=== PATIENT | male | born 1950 | race Caucasian/White ===

== ENCOUNTER → 2017-04-12 09:57 | Outpatient (CLI) | payer MEDICARE ==
[~2017-04-12 09:57] MED LIST: ASPIRIN 81 MG E81 MG PO; ASPIRIN325 MG PO; ESTER-C 500 MG1 TAB; IMDUR30 MG PO; KEPPRA250 MG PO; LIPITOR20 MG PO; MELATONIN 3 MG1 TAB PO; MULTI-DAY VITAM1 TAB PO; NORVASC10 MG PO; PLAVIX75 MG PO; POTASSIUM99 M1 PO
== END | disposition home or self-care (01) ==
LOC: D.MRI 09:57
DX: M54.6 Pain in thoracic spine (principal)

== ENCOUNTER 2018-01-30 06:49 | Outpatient (CLI) | payer MEDICARE ==
[~2018-01-30] VITALS: Ht 177.8 cm; Wt 88.6 kg
--- NOTE | ~2018-01-30 | HEMODYNAMI ---
PATIENT:MELA FRANCISCO MEDICAL RECORD: [id number] : 52 LOCATION:[facility] ADMISSION DATE: 01/30/18 Generatedon:01/30/20189:51 Patient name: MELA FRANCISCO Patient #: [id number] SSN: DO B: 1950 Date of study: 01/30/2018 Page: Of Hemodynamic Procedure Report Patient Data Patient Demographics Procedure consent was obtained First Name: MELA Gender: Male Last Name: MARYAM : 1950 Middle Initial: N Age: 67 year(s) Patient #: [id number] Race: Unknown Additional ID: [id number] Contact details Address: [place] [address] State: [place] City: [place] Zip code: [address] Past Medical History Allergies Allergen Reaction Date Comments Reported Other allergy 01/30/2018 BRILINTA, LATEX, HYDROCODONE, NEOSPORIN, CODEINE, ADHESIVE TAPE, LISINOPRIL Admission Admission Data Admission Date: 01/30/2018 Admission Time: 6:49 Lab Results Lab Result Date: 01/30/2018 Lab Result Time: 0:00 Biochemistry Name Units Result Min Max BUN mg/dl 12 --(-*--)-- 7 18 Creatinine mg/dl 0.9 --(-*--)-- 0.6 1.3 CBC Name Units Result Min Max Hemoglobin g/dl 14.7 --(-*--)-- 13.5 17.5 Procedure Procedure Types Cath Procedure Diagnostic Procedure LHC LHC w/Coronaries Sedation Charges Moderate Sedation up to 15 minutes Procedure Description Procedure Date Procedure Date: 01/30/2018 Procedure Start Time: 9:34 Procedure End Time: 9:48 Procedure Staff Name Function Amrit Justice MD Performing Physician Carolina Flowers RT Monitor Andrez Stephenson RT Scrub Raeann Roman RN Nurse Elle Granados RN Nurse Procedure Data Cath Procedure Fluoroscopy Diagnostic fluoroscopy Total fluoroscopy Time: 2.5 time: 2.5 min min Diagnostic fluoroscopy Total fluoroscopy dose: 562 dose: 562 mGy mGy Contrast Material Contrast Material Type Amount (ml) Isovue 300 76 Entry Location Entry Primary Successful Side Size Upsize Upsize Entry Closure Succes sful Closure Location (Fr) 1 (Fr) 2 (Fr) Remarks Device Remarks Femoral Right 5 Fr Exoseal artery Estimated blood loss: 5 ml Diagnostic catheters Device Type Used For End Catheter Placement MULTIPACK JL 4.0 5Fr Procedure catheter MULTIPACK 3DRC 5Fr Procedure catheter MULTIPACK Pigtail 5 Fr Procedure catheter Procedure Complications No complications Procedure Medications Medication Administration Route Dosage 0.9% NaCl I.V. 100 ml/hr Oxygen etCO2 Nasal cannula 2 l/min Lidocaine 2% added to field 20 Heparin Flush Bag added to field 2 bags (1000units/500ml NS) Versed I.V. 2 mg Fentanyl I.V. 100 mcg Versed I.V. 1 mg Fentanyl I.V. 50 mcg Hemodynamics Rest HGB: 14.7 (g/dl) Heart Rate: 57 (bpm) Pressure Samples Time Site Value (mmHg) Purpose Heart Use Rate(bpm) 9:43 LV 132/-6,11 Snapshot 66 9:44 AO 101/59(76) Pullback 67 9:44 LV 132/-2,16 Pullback 67 Gradients Valve Time Site 1 Site 2 Mean SEP/DFP Peak To Heart Use (mmHg) (sec/min) Peak Rate (mmHg) (bpm) Aortic 9:44 LV AO 24 21 31 67 132/-2,16 101/59(76) Calculations Valve P-P Mean Valve Index Valve Source Name Gradient Area Flow (cm2) Aortic 31 24 31 24 Snapshots Pre Cath Intra NCS Post Cath Vital Signs Time Heart Resp SPO2 etCO2 NIBP (mmHg) Rhythm Pain Sedation Rate (ipm) (%) (mmHg) Status Level (bpm) 9:17:54 58 15 94 36 136/82(106) NSR 0 (11) 10(A) , No pain 9:22:39 58 13 94 31.6 132/76(102) NSR 0 (11) 10(A) , No pain 9:27:28 59 14 95 15.8 124/74(95) NSR 0 (11) 10(A) , No pain 9:32:13 58 16 96 30.8 123/71(98) NSR 0 (11) 9(A) , No pain 9:36:57 58 14 92 32.3 126/70(96) NSR 0 (11) 9(A) , No pain 9:41:38 67 15 95 1.5 114/81(109) NSR 0 (11) 9(A) , No pain 9:46:21 67 19 94 16.5 123/74(101) NSR 0 (11) 9(A) , No pain 9:49:27 65 14 96 30.8 117/73(101) NSR 0 (11) 10(A) , No pain Medications Time Medication Route Dose Verified Delivered Reason Notes Effec tiveness by by 9:17:18 0.9% NaCl I.V. 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 2 mg Amrit Buffie for Vinh Granados RN sedation 9:31:29 Fentanyl I.V. 100 Amrit Buffie for mcg Vinh Granados RN sedation 9:39:57 Versed I.V. 1 mg Amrit Buffie for Vinh Granados RN sedation 9:40:02 Fentanyl I.V. 50 Amrit Buffie for mcg Vinh Granados RN sedation Procedure Log Time Note 9:03:33 Diagnostic Cath status Elective 9:03:38 Plan of Care:Hemodynamics will remain stable., Cardiac rhythm will remain stable., Comfort level will be maintained., Respiratory function will remain adequate., Patient/ family verbilizes understanding of procedure., Procedure tolerated without complication., Recovers from procedure without complications.. 9:03:39 Time tracking: Regular hours (M-F 7:00 - 5:00) 9:03:43 Signed procedure consent form obtained from patient. 9:03:57 Andrez GEIGER(R) sent for patient. Start room use. 9:06:50 Lab Result : BUN 12 mg/dl 9:06:50 Lab Result : Creatinine 0.9 mg/dl 9:06:50 Lab Result : Hemoglobin 14.7 g/dl 9:11:48 Patient received from Pre/Post Procedure Room to CCL 1 Alert and oriented. Tansferred to table in Supine position. 9:11:51 Warm blankets applied, and param hugger turned on for patient comfort. 9:11:51 Correct patient and procedure confirmed by team. 9:11:52 ECG and BP/O2 sat monitors applied to patient. 9:16:56 Vital chart was started 9:17:06 Pre-procedure instructions explained to patient. 9:17:07 Pre-op teaching completed and patient verbalized understanding. 9:17:09 Family in patients room. 9:17:10 Patient NPO since Midnight. 9:17:18 0.9% NaCl 100 ml/hr I.V. was administered by Raeann Roman RN; used for procedure; 9:17:54 Oxygen 2 l/min etCO2 Nasal cannula was administered by Raeann Roman RN; used for procedure; 9:18:29 Lidocaine 2% 20ml vial added to field was administered by Raeann Roman RN; used for procedure; 9:18:50 Heparin Flush Bag (1000units/500ml NS) 2 bags added to field was administered by Raeann Roman RN; used for procedure; 9:19:01 Baseline sample Acquired. 9:19:06 Rhythm: sinus bradycardia 9:19:07 Full Disclosure recording started 9:19:26 Patient allergic to Other allergyBRILINTA, LATEX, HYDROCODONE, NEOSPORIN, CODEINE, ADHESIVE TAPE, LISINOPRIL 9:19:29 Is the patient allergic to Iodine/contrast media? No. 9:19:30 Is patient on blood thinner?No 9:19:31 Patient diabetic? Yes. 9:19:34 If diabetic: On Metformin? No 9:19:37 Previous problem with sedation/anesthesia? No ? 9:19:39 Snore? Yes 9:19:41 Sleep apnea? No 9:19:42 Deviated septum? No 9:19:43 Opens mouth fully? Yes 9:19:43 Sticks out tongue? Yes 9:19:46 Airway obstruction? No ? 9:19:48 Dentures? Yes IN TIGHT 9:19:51 Pre procedure: right dorsailis pedis pulse 2+ Normal; easily identifiable; not easily obliterated 9:19:57 Patient pain scale 0/10 ?. 9:21:06 IV patent on arrival in left hand with 0.9% NaCl at O. 9:21:08 Lab results completed and on chart. 9:21:11 Right groin area was prepped with chlora-prep and draped in sterile fashion 9:21:11 Alarms reviewed by R. N. 9:21:12 Sharps counted by scrub and verified by R.N. 9:21:14 Use device set Femoral Dx 9:21:15 ACIST Syringe (95756) opened to sterile field. 9:21:15 Bag Decanter (2002S) opened to sterile field. 9:21:17 ACIST Hand Control (25283) opened to sterile field. 9:21:18 ACIST Manifold (46799) opened to sterile field. 9:21:19 Tegaderm 4 x 4 (1626W) opened to sterile field. 9:21:21 Medline Cath Pack ([id number]) opened to sterile field. 9:21:21 DIAGNOSTIC WIRE .035 260cm J wire (297680) opened to sterile field. 9:21:23 DIAGNOSTIC Multipack 5Fr catheter set ([id number]) opened to sterile field. 9:21:24 SHEATH Prelude 5Fr 0.035 ([id number]) opened to sterile field. 9:28:55 Zero performed for pressure channel P1 9:29:41 H&P Date Dictated: 01/30/2018 Within 30 days and on chart., H&P Addendum completed by physician on day of procedure. (MUST COMPLETE FOR ALL OUTPATIENTS). 9:30:52 --------ALL STOP TIME OUT------ 9:30:53 Final Timeout: patient, procedure, and site verified with staff and physician. All members of the team are in agreement. 9:30:54 Right groin site verified by team. 9:30:56 Physical assessment completed. ASA score P 2 - A patient with mild systemic disease as per Amrit Justice MD. 9:30:59 Sedation plan: IV Moderate Sedation Medication:Versed, Fentanyl 9:31:17 Versed 2 mg I.V. was administered by Elle Granados RN; for sedation; 9:31:29 Fentanyl 100 mcg I.V. was administered by Elle Granados RN; for sedation; 9:33:58 Procedure started. 9:34:29 Local anesthetic to right femoral artery with Lidocaine 2% by Amrit Justice MD.INITIAL ACCESS ONLY 9:35:44 A 5 Fr sheath was inserted into the Right Femoral artery 9:35:59 A MULTIPACK JL 4.0 5Fr catheter was advanced over the wire and used for Procedure. 9:38:27 LCA angiography performed. 9:38:29 Catheter exchanged over wire. 9:39:16 A MULTIPACK 3DRC 5Fr catheter was advanced over the wire and used for Procedure. 9:39:57 Versed 1 mg I.V. was administered by Elle Granados RN; for sedation; 9:40:02 Fentanyl 50 mcg I.V. was administered by Elle Granados RN; for sedation; 9:40:15 RCA angiography performed. 9:41:03 Catheter exchanged over wire. 9:41:14 A MULTIPACK Pigtail 5 Fr catheter was advanced over the wire and used for Procedure. 9:42:48 LV gram done using RODRIGUEZ 9:42:51 Injector settings: Ml/sec: 10, Volume: 20, 9:43:14 LV hemodynamics recorded. 9:44:19 EF : 60 % 9:45:03 Catheter removed. 9:45:09 EXOSEAL 5Fr (EX500) opened to sterile field. 9:46:18 Sheath removed intact; hemostasis achieved with Exoseal to the Right Femoral artery. 9:46:24 Procedure ended.(Physican Out) 9:46:51 Fluoroscopy time 02.50 minutes. 9:46:55 Fluoroscopy dose: 562 mGy 9:46:55 Flurop Dose total: 562 9:46:59 Contrast amount:Isovue 300 76ml. 9:47:00 Sharps counted by scrub and verified by R.N. 9:47:03 Post-op/insertion site Right Femoral artery dressed using a 4 x 4 and Tegaderm. 9:47:08 Post right femoral artery:stable, soft, clean and dry 9:47:12 Post-procedure physical assessment completed. ASA score P 2 - A patient with mild systemic disease as per Amrit Justice MD. 9:47:17 Post procedure rhythm: sinus rhythm 9:47:18 Estimated blood loss: 5 ml 9:47:20 Post procedure instruction explained to patient.Patient verbalizes understanding. 9:47:20 Patient needs reinforcement of post procedure teaching. 9:47:42 Procedure type changed to Cath procedure, Diagnostic procedure, LHC, LHC w/Coronaries, Sedation Charges, Moderate Sedation up to 15 minutes 9:48:27 Procedure and supply charges have been captured, reviewed, submitted and are correct. 9:48:29 Procedure Complication : No complications 9:48:31 Vital chart was stopped 9:48:32 See physician's report for complete and final results. 9:48:34 Report given to Pre/Post Procedure Room. 9:48:36 Patient transfered to Pre/Post Procedure Room with Bed. 9:48:38 Procedure ended. 9:48:38 Full Disclosure recording stopped 9:48:41 End room use (Document Last) Device Usage Item Name Manufacture Quantity Catalog Number Hospital Part Current M inimal Lot# / Charge Number Stock Stock Serial# Code ACIST Syringe Acist 1 [id number] [id number] 772784 064718 2 0 (39153) [employer] Bag Decanter Microtek 1 2001S 337656 73272 878325 5 (2001S) Medical Inc. ACIST Hand Acist 1 63555 844297 422987 611798 5 Control (30702) Medical Systems Inc ACIST Manifold Acist 1 65387 285107 497912 642707 5 (99035) Medical Systems Inc Tegaderm 4 x 4 3M 1 1626W 630740 152303 624572 5 (1626W) Medline Cath Cardinal 1 [id number] 640316 26730 050814 5 Pack Health ([id number]) DIAGNOSTIC WIRE [facility] 1 106649 328177 889559 464673 3 0 .035 260cm J wire (914497) DIAGNOSTIC Cardinal 1 [id number] 451725 24455 319022 3 0 Multipack 5Fr Health catheter set ([id number]) SHEATH Prelude Merit 1 [id number] 370095 876533 475584 5 5Fr 0.035 Medical ([id number]) MULTIPACK JL Cardinal 1 [id number] 5 4.0 5Fr Health catheter MULTIPACK 3DRC Cardinal 1 [id number] 5 5Fr catheter Health MULTIPACK Cardinal 1 [id number] 5 Pigtail 5 Fr Health catheter EXOSEAL 5Fr Cardinal 1 EX500 937448 267629 298615 1 0 (EX500) Health Signature Audit [place] Stage Time Signature Unsigned Intra-Procedure 01/30/2018 Carolina Flowers 9:51:54 AM RT(R) Signatures Monitor : Carolina Flowers Signature : RT Date : Time : [address] [address]
[2018-01-30] MEDS ORDERED: AMBIEN10 MG PO (07:45)
[2018-01-30] MEDS ORDERED: HYDROCORTISONE30 G8 TOPICAL (07:46)
[2018-01-30] MEDS ORDERED: ZOLOFT25 MG PO (07:48)
[2018-01-30 07:53] VITALS: BP 132/80; Ht 177.8 cm; Wt 88.6 kg
[2018-01-30 08:11] LABS: BASOPHILS 0.7 % (0-2); EOSINOPHILS 1.2 % (0-7); HEMATOCRIT 42.3 % (42.0-54.0); HEMOGLOBIN 14.7 g/dL (13.5-17.5); IMMATURE GRANULOCYTES 0.7 % (0-5); LYMPHOCYTES 28.1 % (15-50); MCH 32.1 pg (26.0-34.0); MCHC 34.8 g/dL (31.0-37.0); MCV 92.4 fL (80.0-100.0); MEAN PLATELET VOLUME 10.5 fL (7.4-10.4); MONOCYTES 11.2 % (2-11); NEUTROPHILS 58.1 % (40-80); PLATELET COUNT 182 10x3/uL (130-400); RBC 4.58 10x6/uL (4.20-6.10); RDW 12.5 % (11.5-14.5); WBC 8.2 10x3/uL (4.8-10.8)
[2018-01-30 08:26] LABS: CALC OSMOLALITY 277 mosm/kg (275-300); CALCIUM 8.5 mg/dL (8.5-10.1); CARBON DIOXIDE 25.4 mmol/L (21.0-32.0); CHLORIDE - SERUM 103 mmol/L (98-107); CREATININE - SERUM 0.9 mg/dL (0.6-1.3); GLUCOSE 136 mg/dL (74-106); POTASSIUM - SERUM 3.9 mmol/L (3.5-5.1); SODIUM 138 mmol/L (136-145); UREA NITROGEN 12 mg/dL (7-18); eGFR NON AFRICAN AMERICAN 90 mL/min (90-120)
== END 2018-01-30 12:20 | disposition home or self-care (01) ==
LOC: D.CATH 06:49
PROVIDERS: Internal Medicine Cardiovascular Disease
DX: I25.110 Atherosclerotic heart disease of native coronary artery with unstable angina pectoris (principal); R06.00 Dyspnea, unspecified; R94.39 Abnormal result of other cardiovascular function study